=== PATIENT | female | born 1955 | race Caucasian/White ===

== ENCOUNTER 2024-08-09 10:46 | Emergency (ER) | payer MEDICARE, BC ==
[2024-08-09] MEDS: methylPREDNISolone SOD SUCCI 125 MG/2 ML VIAL IV STA (11:38)
[2024-08-09 11:43] LABS: Basophils % (A) 0 %; Eosinophils # (A) 0.1 k/uL (0-0.7); Eosinophils % (A) 1 %; HCT 33.3 % (34.0-46.0); HGB 10.9 gm/dL (11.4-16.0); Lymphocytes # (A) 1.6 k/uL (1.0-4.8); Lymphocytes % (A) 17 %; MCH 30.7 pg (25.0-35.0); MCHC 32.7 g/dL (31.0-37.0); MCV 94.1 fL (80.0-100.0); Mean Platelet Volume 8.6; Monocytes # (A) 0.5 k/uL (0-1.0); Monocytes % (A) 5 %; Neutrophils % (A) 74 %; Platelet Count 309 k/uL (150-450); RBC 3.53 m/uL (3.80-5.40); RDW 14.8 % (11.5-15.5); WBC 9.5 k/uL (3.8-10.6)
[2024-08-09 11:59] LABS: Prothrombin Time 10.7 sec (10.0-12.5)
[2024-08-09 12:02] LABS: ALT 20 U/L (4-34); AST 24 U/L (14-36); African American GFR (CKD) >90 (>60 ml/min/1.73 sqM); Albumin 4.3 g/dL (3.5-5.0); Alkaline Phosphatase 85 U/L (38-126); Anion Gap 9 mmol/L; Blood Urea Nitrogen 7 mg/dL (7-17); Calcium 8.8 mg/dL (8.4-10.2); Carbon Dioxide 27 mmol/L (22-30); Chloride 104 mmol/L (98-107); Glucose 121 mg/dL (74-99); Non-African American GFR(CKD) >90 (>60 ml/min/1.73 sqM); Potassium 3.2 mmol/L (3.5-5.1); Sodium 140 mmol/L (137-145); Total Bilirubin 0.9 mg/dL (0.2-1.3); Total Protein 7.7 g/dL (6.3-8.2)
--- NOTE | 2024-08-09 12:08 | XR ---
EXAMINATION TYPE: XR chest 2V DATE OF EXAM: 08/09/2024 12:00 PM COMPARISON: None TECHNIQUE: XR chest 2V Frontal and lateral views of the chest. CLINICAL INDICATION:Female, 69 years old with history of difficulty breathing; FINDINGS: Lungs/Pleura: There is no evidence of pleural effusion, focal consolidation, or pneumothorax. Pulmonary vascularity: Mild pulmonary vascular congestion. Heart/mediastinum: Cardiomediastinal silhouette is enlarged. Atherosclerotic calcifications are seen in the aorta. Musculoskeletal: Multiple level degenerative disc disease changes seen throughout the spine. IMPRESSION: Cardiomegaly and mild pulmonary vascular congestion. Correlate with BNP for congestive heart failure. [facility], , 08/09/2024 12:06 PM
[2024-08-09 12:11] LABS: NT-Pro-B-Type Natriuretic Pept 1720 pg/mL
[2024-08-09] MEDS: IPRATROPIUM-ALBUTEROL 3 ML NEB INHALATION STA (12:38)
[2024-08-09 13:38] VITALS: RESP 18
--- NOTE | 2024-08-09 13:38 | ED ---
SOB HPI - General Chief Complaint: Shortness of Breath Stated Complaint: RIP Time Seen by Provider: 08/09/24 11:01 Source: patient, RN notes reviewed Mode of arrival: ambulatory Limitations: no limitations - History of Present Illness Initial Comments: This is a 69-year-old female presenting with cough and difficulty breathing x 3 days. Patient endorses going to urgent care for symptoms where chest x-ray and nebulized albuterol treatment were performed. Patient states provider noted "fluid on the lungs" and advised ER to rule out PE. Patient endorses recent cruise for about 10 days and flight from the . Patient denies fever, chills, body aches, nasal congestion, chest pain, abdominal pain, N/V/D, constipation, headache. MD Complaint: shortness of breath Onset/Timin -: days(s) Context: recent travel Associated Symptoms: cough - Related Data Previous Rx's Medication Instructions Recorded Azithromycin [Zithromax Z Pack] 0 tab PO DIRECTED #6 tab 08/09/24 methylPREDNISolone Dose Pack 4 mg PO DIRECTED #21 tab 08/09/24 [Medrol Dose Pack] Allergies Allergy/AdvReac Type Severity Reaction Status Date / Time No Known Allergies Allergy Verified 08/09/24 10:55 Review of Systems ROS Statement: Those systems with pertinent positive or pertinent negative responses have been documented in the HPI. ROS Other: All systems not noted in ROS Statement are negative. Past Medical History Past Medical History: No Reported History History of Any Multi-Drug Resistant Organisms: None Reported Past Surgical History: No Surgical Hx Reported Past Psychological History: No Psychological Hx Reported Smoking Status: Vaper Past Alcohol Use History: None Reported Past Drug Use History: None Reported General Exam Limitations: no limitations General appearance: alert, in no apparent distress Head exam: Present: atraumatic, normocephalic, normal inspection Eye exam: Present: normal appearance, PERRL, EOMI. Absent: scleral icterus, conjunctival injection, periorbital swelling ENT exam: Present: normal exam, mucous membranes moist Neck exam: Present: normal inspection. Absent: tenderness, meningismus, lymphadenopathy Respiratory exam: Present: decreased breath sounds (Slightly diminished lung sounds in all house. Negative wheezing, rhonchi, rales). Absent: respiratory distress, wheezes, rales, rhonchi, stridor Cardiovascular Exam: Present: regular rate, normal rhythm, normal heart sounds. Absent: systolic murmur, diastolic murmur, rubs, gallop, clicks GI/Abdominal exam: Present: soft, normal bowel sounds. Absent: distended, tenderness, guarding, rebound, rigid Extremities exam: Present: normal inspection, full ROM, normal capillary refill. Absent: tenderness, pedal edema, joint swelling, calf tenderness Back exam: Present: normal inspection Neurological exam: Present: alert, oriented X3, CN II-XII intact Psychiatric exam: Present: normal affect, normal mood Skin exam: Present: warm, dry, intact, normal color. Absent: rash Course Vital Signs 08/09/24 08/09/24 08/09/24 10:51 11:05 11:53 Temperature 99.2 F 98 F Pulse Rate 83 84 Respiratory 22 18 16 Rate Blood Pressure 119/62 126/76 O2 Sat by Pulse 93 L 100 Oximetry 08/09/24 08/09/24 08/09/24 12:38 12:46 13:36 Temperature 98.1 F Pulse Rate 72 75 87 Respiratory 18 Rate Blood Pressure 138/76 O2 Sat by Pulse 96 Oximetry 08/09/24 15:22 Temperature 98.2 F Pulse Rate 81 Respiratory 18 Rate Blood Pressure 136/77 O2 Sat by Pulse 9 L Oximetry Medical Decision Making - Medical Decision Making Was pt. sent in by a medical professional or institution (ARIS Doty, INFORMATION ASSURANCE, urgent care, hospital, or skilled nursing...) When possible be specific @ -[No] Did you speak to anyone other than the patient for history (EMS, parent, family, police, friend...)? What history was obtained from this source @ -[No] Did you review nursing and triage notes (agree or disagree)? Why? @ -[I reviewed and agree with nursing and triage notes] Were old charts reviewed (outside hosp., previous admission, EMS record, old EKG, old radiological studies, urgent care reports/EKG's, skilled nursing records)? Report findings @ -[No old charts were reviewed] Differential Diagnosis (chest pain, altered mental status, abdominal pain women, abdominal pain men, vaginal bleeding, weakness, fever, dyspnea, syncope, headache, dizziness, GI bleed, back pain, seizure, CVA, palpatations, mental health, musculoskeletal)? @ -Differential Dyspnea: Coronary syndrome, arrhythmia, tamponade, asthma, COPD, pulmonary embolism, pneumonia, pneumothorax, pulmonary effusion, anaphylaxis, diabetic ketoacidosis, flailed chest, pulmonary contusion, diaphragmatic rupture, anemia, neuromuscular, this is not meant to be an all-inclusive list. EKG interpreted by me (3pts min.). @ -Sinus rhythm with left bundle branch block. Unsure if this is new. Negative ST elevation, ST depression, T wave inversion. Ventricular rate 84 bpm, AR interval 146 ms, QRS duration 169 ms, QT/QTc 441/483 ms, X-rays interpreted by me (1pt min.). @ -Chest x-ray shows mild pulmonary edema and interstitial densities. Negative localized consolidation, costophrenic blunting. CT interpreted by me (1pt min.). @ -Chest CT shows some idiopathic nodules and right lower lobe. No obvious signs of PE U/S interpreted by me (1pt. min.). @ -[None done] What testing was considered but not performed or refused? (CT, X-rays, U/S, labs)? Why? @ -[None] What meds were considered but not given or refused? Why? @ -[None] Did you discuss the management of the patient with other professionals (professionals i.e. , PA, INFORMATION ASSURANCE, lab, RT, psych nurse, social services manager, automatic winder operator, teacher, animal park code enforcement officer, cyanide case hardener)? Give summary @ -[No] Was smoking cessation discussed for >3mins.? @ -[No] Was critical care preformed (if so, how long)? @ -[No] Were there social determinants of health that impacted care today? How? (Homelessness, low income, unemployed, alcoholism, drug addiction, transportation, low edu. Level, literacy, decrease access to med. care, half-way, rehab)? @ -[No] Was there de-escalation of care discussed even if they declined (Discuss DNR or withdrawal of care, Hospice)? DNR status @ -[No] What co-morbidities impacted this encounter? (DM, HTN, Smoking, COPD, CAD, Cancer, CVA, ARF, Chemo, Hep., AIDS, mental health diagnosis, sleep apnea, morbid obesity)? @ -[None] Was patient admitted / discharged? Hospital course, mention meds given and route, prescriptions, significant lab abnormalities, going to OR and other pertinent info. @ -Discharged. Cepheid test was negative. Patient given DuoNeb and Solu-Medrol IV with some improvement in breathing noted. Patient lab work shows elevated BNP. Twelve-lead shows left bundle branch block, unsure if this is new. Patient states she is unsure of prior diagnosis. Chest x-ray shows some pulmonary edema and interstitial densities. CT scan shows some nodules but otherwise fairly benign. Patient given IV Lasix and Rocephin prior to discharge. Azithromycin and Medrol Dosepak sent to pharmacy. Undiagnosed new problem with uncertain prognosis? @ -[No] Drug Therapy requiring intensive monitoring for toxicity (Heparin, Nitro, Insulin, Cardizem)? @ -[No] Were any procedures done? @ -[No] Diagnosis/symptom? @ -Community-acquired pneumonia, pulmonary edema, left bundle branch block Acute, or Chronic, or Acute on Chronic? @ -Acute Uncomplicated (without systemic symptoms) or Complicated (systemic symptoms)? @ -Uncomplicated Side effects of treatment? @ -[No] Exacerbation, Progression, or Severe Exacerbation? @ -[No] Poses a threat to life or bodily function? How? (Chest pain, [place], AL, pneumonia, PE, COPD, DKA, ARF, appy, cholecystitis, CVA, Diverticulitis, Homicidal, Suicidal, threat to staff... and all critical care pts) @ -[No] - Lab Data Result diagrams: 08/09/24 11:28 08/09/24 11:28 Lab Results 08/09/24 08/09/24 08/09/24 Range/Units 11:28 11:28 11:28 WBC 9.5 (3.8-10.6) k/uL RBC 3.53 L (3.80-5.40) m/uL Hgb 10.9 L (11.4-16.0) gm/dL Hct 33.3 L (34.0-46.0) % MCV 94.1 (80.0-100.0) fL MCH 30.7 (25.0-35.0) pg MCHC 32.7 (31.0-37.0) g/dL RDW 14.8 (11.5-15.5) % Plt Count 309 (150-450) k/uL MPV 8.6 Neutrophils % 74 % Lymphocytes % 17 % Monocytes % 5 % Eosinophils % 1 % Basophils % 0 % Neutrophils # 7.0 (1.3-7.7) k/uL Lymphocytes # 1.6 (1.0-4.8) k/uL Monocytes # 0.5 (0-1.0) k/uL Eosinophils # 0.1 (0-0.7) k/uL Basophils # 0.0 (0-0.2) k/uL PT 10.7 (10.0-12.5) sec INR 1.0 (<1.2) APTT 24.0 (22.0-30.0) sec D-Dimer 1.17 H (<0.60) mg/L FEU Sodium 140 (137-145) mmol/L Potassium 3.2 L (3.5-5.1) mmol/L Chloride 104 (98-107) mmol/L Carbon Dioxide 27 (22-30) mmol/L Anion Gap 9 mmol/L BUN 7 (7-17) mg/dL Creatinine 0.59 (0.52-1.04) mg/dL Est GFR (CKD-EPI)AfAm >90 (>60 ml/min/1.73 sqM) Est GFR (CKD-EPI)NonAf >90 (>60 ml/min/1.73 sqM) Glucose 121 H (74-99) mg/dL Calcium 8.8 (8.4-10.2) mg/dL Total Bilirubin 0.9 (0.2-1.3) mg/dL AST 24 (14-36) U/L ALT 20 (4-34) U/L Alkaline Phosphatase 85 (38-126) U/L Troponin I (0.000-0.034) ng/mL NT-Pro-B Natriuret Pep 1720 pg/mL Total Protein 7.7 (6.3-8.2) g/dL Albumin 4.3 (3.5-5.0) g/dL Influenza Type A (PCR) (Not Detectd) Influenza Type B (PCR) (Not Detectd) RSV (PCR) (Not Detectd) SARS-CoV-2 (PCR) (Not Detectd) 08/09/24 08/09/24 Range/Units 11:28 11:28 WBC (3.8-10.6) k/uL RBC (3.80-5.40) m/uL Hgb (11.4-16.0) gm/dL Hct (34.0-46.0) % MCV (80.0-100.0) fL MCH (25.0-35.0) pg MCHC (31.0-37.0) g/dL RDW (11.5-15.5) % Plt Count (150-450) k/uL MPV Neutrophils % % Lymphocytes % % Monocytes % % Eosinophils % % Basophils % % Neutrophils # (1.3-7.7) k/uL Lymphocytes # (1.0-4.8) k/uL Monocytes # (0-1.0) k/uL Eosinophils # (0-0.7) k/uL Basophils # (0-0.2) k/uL PT (10.0-12.5) sec INR (<1.2) APTT (22.0-30.0) sec D-Dimer (<0.60) mg/L FEU Sodium (137-145) mmol/L Potassium (3.5-5.1) mmol/L Chloride (98-107) mmol/L Carbon Dioxide (22-30) mmol/L Anion Gap mmol/L BUN (7-17) mg/dL Creatinine (0.52-1.04) mg/dL Est GFR (CKD-EPI)AfAm (>60 ml/min/1.73 sqM) Est GFR (CKD-EPI)NonAf (>60 ml/min/1.73 sqM) Glucose (74-99) mg/dL Calcium (8.4-10.2) mg/dL Total Bilirubin (0.2-1.3) mg/dL AST (14-36) U/L ALT (4-34) U/L Alkaline Phosphatase (38-126) U/L Troponin I <0.012 (0.000-0.034) ng/mL NT-Pro-B Natriuret Pep pg/mL Total Protein (6.3-8.2) g/dL Albumin (3.5-5.0) g/dL Influenza Type A (PCR) Not Detected (Not Detectd) Influenza Type B (PCR) Not Detected (Not Detectd) RSV (PCR) Not Detected (Not Detectd) SARS-CoV-2 (PCR) Not Detected (Not Detectd) Disposition Clinical Impression: Pneumonia, Pulmonary edema Disposition: HOME SELF-CARE Condition: Good Instructions (If sedation given, give patient instructions): Pulmonary Edema (ED), Community Acquired Pneumonia (ED) Additional Instructions: Advised follow-up with primary care regarding possible new left bundle branch block. Advise repeat chest CT scan in 3 to 6 months to monitor possible changes in right lower lobe nodules. Prescriptions: methylPREDNISolone Dose Pack [Medrol Dose Pack] 4 mg PO DIRECTED #21 tab Azithromycin [Zithromax Z Pack] 0 tab PO DIRECTED #6 tab Is patient prescribed a controlled substance at d/c from ED?: No Referrals: Nonstaff,Physician [Primary Care Provider] - 1-2 days Time of Disposition: 14:54
--- NOTE | 2024-08-09 13:52 | CT ---
EXAMINATION TYPE: CT chest angio for PE CT DLP: 333.7 mGycm, Automated exposure control for dose reduction was used. DATE OF EXAM: 08/09/2024 1:38 PM COMPARISON: Chest radiograph from same day. CLINICAL INDICATION:Female, 69 years old with history of Dyspnea, elevated D-dimer, recent flight; di b/cough TECHNIQUE/CONTRAST: CTA scan of the thorax is performed with IV Contrast, patient injected with 100 mL of Isovue 370, pul monary embolism protocol. MIP images are created and reviewed. FINDINGS: Pulmonary Artery: There is no evidence for a filling defect within the pulmonary vasculature to sugge st acute pulmonary embolism. The pulmonary artery is of normal size. Lungs/Pleura: No evidence of focal consolidation, pleural effusion or pneumothorax. Patchy mosaic ana lilia undglass attenuation to the lungs. Right lower lobe 7 mm pulmonary nodule (series 406, image 77). Add itional right lower lobe 5 mm pulmonary nodule (series 406, image 100). Right lower lobe 8 mm pulmona ry nodule (series 406, image 86). Linear atelectasis within the lingula. Airway: Large airways are patent. Heart: Mildly prominent in size. Trace pericardial effusion. Vasculature: No evidence of aortic aneurysm. Mediastinum: No enlarged lymph nodes. A 1 cm short axis. Musculoskeletal: No acute osseous abnormalities. DISH of the mid to lower thoracic spine. Soft Tissues: Unremarkable. Lower neck: No significant findings. Upper Abdomen: Low attenuation region adjacent to the falciform ligament likely representing focal fa tty infiltration. Liver is diffusely low attenuating. Fundal gastric diverticulum.. IMPRESSION: 1. No evidence of pulmonary embolism. 2. Subtle patchy mosaic groundglass opacification throughout the lungs concerning for developing aty pical pneumonia versus pulmonary edema. 3. Right lower lobe pulmonary nodules measuring up to 8 mm. Follow-up CT chest in 3-6 months is jada mmended. 4. Hepatic steatosis. 5. Fundal gastric diverticulum. [facility], , 08/09/2024 1:49 PM
[2024-08-09] MEDS ORDERED: cefTRIAXone 1,000 MG VIAL (IM USE) IM STA (14:45)
[2024-08-09] MEDS: FUROSEMIDE 10 MG/ML 4 ML VIAL IV STA (15:10)
[2024-08-09] MEDS: cefTRIAXone IN SWFI 1,000 MG/10 ML SYRINGE IVP STA (15:13)
[2024-08-09 15:23] VITALS: BP 136/77; PULSE 81; TEMP 98.2
== END 2024-08-09 15:24 | disposition home or self-care (01) ==
LOC: EC 10:46
CPT/HCPCS: 36415; 71046; 71275; 80053; 83880; 84484; 85025; 85379; 85610; 85730; 87636; 93005; 94640; 96374; 96375; 99285